=== PATIENT | male | born 1990 | race Caucasian/White ===

== ENCOUNTER 2022-12-13 20:16 | Emergency (ER) | payer OTHER, SELFPAY ==
[2022-12-13 20:18] VITALS: BP 153/112; PULSE 102; RESP 16; TEMP 36.5; O2SAT 99
--- NOTE | 2022-12-13 20:36 | ED.EAR ---
HPI - Ear Problem General Chief complaint: Ear Stated complaint: ear pain Time Seen by Provider: 12/13/22 20:24 History of Present Illness HPI Narrative: This is a 32-year-old male presents the ED with chief complaint of right ear pain x2 days. Patient states the pain got worse today at work so he came to the ER for further evaluation. Patient states he took Tylenol with minimal relief. Reports being sick a couple of weeks ago. Now he feels like the ear is clogged. Denies any left-sided symptoms. Denies sore throat or congestion. Denies fevers, chills Related Data Allergies Allergy/AdvReac Type Severity Reaction Status Date / Time No Known Allergies Allergy Verified 12/13/22 20:20 Review of Systems Review of Systems: CONSTITUTIONAL: Denies fever, chills, or sweats. EYES: Denies visual changes, redness, or discharge. ENT: See CARDIOVASCULAR: Denies chest pain, palpitations, or edema. RESPIRATORY: Denies cough or dyspnea. GASTROINTESTINAL: Denies abdominal pain, nausea, vomiting, or diarrhea. GENITOURINARY: Denies dysuria or hematuria. SKIN: Denies rash or itching. MUSCULOSKELETAL: Denies back pain, joint pain, or myalgia. NEUROLOGIC: Denies headache, numbness, dizziness, or weakness. PSYCHIATRIC: Denies anxiety or depression. Exam Narrative: GENERAL: Well-appearing, well-nourished, and in no acute distress. HEAD: Normocephalic, atraumatic. EYES: PERRLA and EOMI. ENT: Nares clear, no rhinorrhea or epistaxis. Mucous membranes moist. Oropharynx without tonsillar hypertrophy exudate or other lesions. Right ear canal erythematous. Cerumen found on the TM, the difficult to visualize the TM fully but there is erythema there as well. Left ear is benign. NECK: Supple. No adenopathy or masses. CHEST: No respiratory distress. Clear to auscultation. No wheezes rales or rhonchi HEART: Regular rate and rhythm. No murmur heard. Normal peripheral pulses. ABDOMEN: Soft, nontender, nondistended, normal active bowel sounds. EXTREMITIES: Normal range of motion. No edema. SKIN: Warm, dry, no rash. NEURO: Alert and oriented x3. No focal deficits. PSYCH: Normal mood and affect. Course Vital Signs Vital signs: Vital Signs Temperature 97.7 F 12/13/22 20:18 Pulse Rate 102 H 12/13/22 20:18 Respiratory Rate 16 12/13/22 20:18 Blood Pressure 153/112 H 12/13/22 20:18 Pulse Oximetry 99 12/13/22 20:18 Oxygen Delivery Room Air 12/13/22 20:18 Temperature 97.7 F 12/13/22 20:18 Pulse Rate 102 H 12/13/22 20:18 Respiratory Rate 16 12/13/22 20:18 Blood Pressure 153/112 H 12/13/22 20:18 Pulse Oximetry 99 12/13/22 20:18 Oxygen Delivery Room Air 12/13/22 20:18 Medical Decision Making MDM Narrative Medical decision making narrative: This is a 32-year-old male who presents to the ED with chief complaint of right ear pain x2 days. Vitals are stable. Afebrile. Exam reveals otitis externa with possible otitis media. He will be given eardrops here in the ED. Ciprodex prescription given along with Augmentin. Feel this is most likely otitis externa, however he did have a recent viral URI which could be contributing to otitis media. Will be discharged in stable condition. Given PCP for reference for follow-up. Patient is understanding and agreeable to plan for discharge and follow-up. Vital Signs Vital Signs: Vital Signs Temperature 97.7 F 12/13/22 20:18 Pulse Rate 102 H 12/13/22 20:18 Respiratory Rate 16 12/13/22 20:18 Blood Pressure 153/112 H 12/13/22 20:18 Pulse Oximetry 99 12/13/22 20:18 Oxygen Delivery Room Air 12/13/22 20:18 Temperature 97.7 F 12/13/22 20:18 Pulse Rate 102 H 12/13/22 20:18 Respiratory Rate 16 12/13/22 20:18 Blood Pressure 153/112 H 12/13/22 20:18 Pulse Oximetry 99 12/13/22 20:18 Oxygen Delivery Room Air 12/13/22 20:18 Discharge Plan Discharge Clinical Impression: Otitis externa Qualifiers: Otitis externa type: un
[2022-12-13] MEDS: CIPROFLOXACIN HC OTIC 10 ML 3 DROP RIGHT EAR (21:08)
== END 2022-12-13 21:25 | disposition home or self-care (01) ==
LOC: ANHED 20:39
PROVIDERS: Emergency Provider Physician Assistant
DX: H60.501 Unspecified acute noninfective otitis externa, right ear (principal)
CPT/HCPCS: 99283; A9270

== ENCOUNTER 2022-12-20 | Emergency (ER) | payer OTHER, SELFPAY ==
[2022-12-20 00:03] VITALS: BP 156/87; PULSE 99; RESP 18; TEMP 37.1; O2SAT 99
--- NOTE | 2022-12-20 02:33 | ED.EAR ---
HPI - Ear Problem General Chief complaint: Ear Stated complaint: Ear pain ( right) Time Seen by Provider: 12/20/22 01:56 Source: patient Mode of arrival: ambulatory Limitations: no limitations History of Present Illness HPI Narrative: Patient is a 32-year-old male who presents to the ED with report of right ear/jaw pain. Patient reports he was seen in the ED here and diagnosed with right otitis externa on 12/13. There was questionable otitis media, as well. Patient was given Ciprodex eardrops and Augmentin. He states he did not finish either of these. He did not follow-up with primary. He reports having intermittent pain in right ear/jaw/denominational region. He has been taking Tylenol intermittently for this and did take ibuprofen one time. Denies any hearing loss, fever or other upper respiratory symptoms, denies cough, congestion, sore throat, rhinorrhea, pain with chewing. Related Data Allergies Allergy/AdvReac Type Severity Reaction Status Date / Time No Known Allergies Allergy Verified 12/13/22 20:20 Review of Systems Review of Systems: CONSTITUTIONAL: Denies fever, chills, or sweats. ENT: See HPI. CARDIOVASCULAR: Denies chest pain. RESPIRATORY: Denies cough or dyspnea. GASTROINTESTINAL: Denies abdominal pain, nausea, vomiting. All systems reviewed & are unremarkable except as noted in HPI and below PMFSH Past Medical History Medical History (Updated 12/20/22 @ 02:57 by Jeninfer Koch PA-C) No pertinent past medical history Surgical History Surgical History (Updated 12/20/22 @ 02:57 by Jennifer Koch PA-C) No pertinent past surgical history Social History Social History (Updated 12/20/22 @ 02:57 by Jennifer Koch PA-C) Smoking status: Never smoker Exam Narrative: GENERAL: Well appearing, morbidly obese with BMI of 43.3, non-toxic, in no acute distress. HEAD: Normocephalic, atraumatic. ENT: Small amount of white debris present in right ear overlying TM, no erythema or bulging noted of right TM. No obvious TM perforation or rupture. No significant swelling of EAC. No tenderness with palpation of pinna. No drainage. Normal left ear. Mucous membranes moist. No significant tenderness over TMJ or mandible. NECK: Supple. No adenopathy, no masses. Full range of motion. RESPIRATORY: Airway patent, respirations nonlabored. CARDIOVASCULAR: Regular rate and rhythm without murmurs, rubs, or gallops. Radial pulses 2+ and equal bilaterally. MUSCULOSKELETAL: Moves all extremities. Strength/ROM intact without gross deformities. SKIN: Warm, dry, normal color. No rashes. NEURO: A&O X3. Speech clear. Cranial nerves II-XII grossly intact. Steady gait. No ataxic movements. PSYCHIATRIC: Appropriate mood and affect. Normal interaction. Course Vital Signs Vital signs: Vital Signs Temperature 98.8 F 12/20/22 00:03 Pulse Rate 99 12/20/22 00:03 Respiratory Rate 18 12/20/22 00:03 Blood Pressure 156/87 H 12/20/22 00:03 Pulse Oximetry 99 12/20/22 00:03 Temperature 98.8 F 12/20/22 00:03 Pulse Rate 99 12/20/22 00:03 Respiratory Rate 18 12/20/22 00:03 Blood Pressure 156/87 H 12/20/22 00:03 Pulse Oximetry 99 12/20/22 00:03 Medical Decision Making MDM Narrative Medical decision making narrative: Patient presented to ED with persistent right ear/jaw pain, recently diagnosed with AOM/AOE. Noncompliant with antibiotics. Vital stable upon arrival. Afebrile. Patient denying any other upper respiratory symptoms. No significant signs of infection on ear exam, some debris noted in right canal. Discussed possibility of remaining infection, TMJ. Advised patient to continue Tylenol and ibuprofen as needed for pain, finish antibiotics as previously prescribed, and follow with ENT for further evaluation. Will provide Dr. Dominguez's information for follow-up. Given reasons to return. Discharged in stable condition. Medical Records Medical records reviewed: Yes I
[2022-12-20] MEDS: KETOROLAC (*BKC) 60 MG/2 ML VIAL IM (02:47)
[2022-12-20 02:52] VITALS: BP 131/87; O2SAT 100
[2022-12-20 03:01] VITALS: BP 122/76; O2SAT 100
[2022-12-20 03:09] VITALS: BP 122/76; PULSE 67; RESP 16; O2SAT 99
== END 2022-12-20 03:15 | disposition home or self-care (01) ==
PROVIDERS: Emergency Provider Physician Assistant
DX: H92.01 Otalgia, right ear (principal); M26.621 Arthralgia of right temporomandibular joint
CPT/HCPCS: 96372; 99283; J1885

== ENCOUNTER 2022-12-20 10:40 | Emergency (ER) | payer OTHER, SELFPAY ==
--- NOTE | ~2022-12-20 | CT_ITS ---
EXAMINATION: CT brain wo con DATE: 12/20/2022 11:48 INDICATION: Right mastoid tenderness. TECHNIQUE: Computed tomography (CT) of the head was performed without intravenous contrast. The mA wa s adjusted according to patient size. Iterative reconstruction technique was employed. The dose-lengt h product was 605.33 mGy-cm. COMPARISON: None FINDINGS: There is no intracranial hemorrhage, acute infarction, or abnormal intracranial mass lesion . The ventricles are normal in size. The orbits are normal. There is mild mucosal thickening in the e thmoid sinuses. The mastoid air cells are normal. There is cerumen in right external auditory canal. IMPRESSION: 1. Normal brain. 2. Cerumen in right external auditory canal. Reviewed, dictated and finalized at location A.
[2022-12-20 10:42] VITALS: BP 144/94; PULSE 95; RESP 16; TEMP 36.4; O2SAT 100
--- NOTE | 2022-12-20 11:07 | ED.EAR ---
HPI - Ear Problem General Chief complaint: Ear Stated complaint: right ear pain Time Seen by Provider: 12/20/22 10:47 History of Present Illness HPI Narrative: 32-year-old male here for evaluation of right ear pain x5 days. Patient states that he was seen here upon onset and was treated for otitis externa and media with drops and oral antibiotics. Reports initial improvement but his symptoms returned and worsened last evening. He was seen again in the ED, was given Toradol with improvement of his symptoms. Patient states the pain returned this morning, he took an ibuprofen without relief and so he presented back here. At time my evaluation patient believes the ibuprofen has taken its effect and he has currently complaining of 2 out of 10 pain. When the pain is there it is present in his entire ear and middle ear, behind his ear and into his right religious. It is a throbbing pain. He denies any visual changes, nausea or vomiting or fevers or chills. He is not a diabetic. Related Data Allergies Allergy/AdvReac Type Severity Reaction Status Date / Time No Known Allergies Allergy Verified 12/20/22 10:45 Review of Systems Review of Systems: Gen.: Denies fevers or chills Eyes: Denies eye pain or visual change ENT: Reports ear pain Respiratory: Denies shortness of breath or cough CV: Denies chest pain or palpitations GI: Denies abdominal pain nausea, emesis or diarrhea denies burning, urgency, frequency or hematuria Musculoskeletal: Denies back pain or muscle pain Neuro: Denies numbness, tingling, weakness or focal weakness Skin: Denies rash Except as documented, all other systems reviewed and negative PMFSH Past Medical History Medical History No pertinent past medical history Surgical History Surgical History No pertinent past surgical history Social History Social History (Updated 12/20/22 @ 02:57 by Jennifer Koch PA-C) Smoking status: Never smoker Exam Narrative: APPEARANCE: Well appearing, no pain in distress, well-nourished. Head: Normocephalic and atraumatic. EYES: There is a large ball of cerumen in the right ear which obscures complete visualization of the TM. This was irrigated, the TM has a large amount of white material NOSE: No nasal drainage EARS: External ear normal in appearance THROAT: Oropharynx is clear. Mucous membranes are moist. NECK: Supple. No adenopathy, no masses. RESPIRATORY: Airway patent, respirations nonlabored. Clear to auscultation bilaterally, no rales, rhonchi, wheezing. CARDIOVASCULAR: Regular rate and rhythm without murmurs, rubs, or gallops. ABDOMINAL: Normoactive bowel sounds. Soft, nontender, nondistended. No rebound tenderness or guarding. MUSCULOSKELETAL: Extremities are warm and well-perfused. Moves all extremities well. No edema. NEURO: Normal speech. No focal neurologic deficits. SKIN: Skin is warm and dry. No rashes. PSYCHIATRIC: Normal affect/mood. Course Vital Signs Vital signs: Vital Signs Temperature 97.5 F L 12/20/22 10:42 Pulse Rate 95 12/20/22 10:42 Respiratory Rate 16 12/20/22 10:42 Blood Pressure 144/94 H 12/20/22 10:42 Pulse Oximetry 100 12/20/22 10:42 Oxygen Delivery Room Air 12/20/22 10:42 Temperature 97.5 F L 12/20/22 10:42 Pulse Rate 95 12/20/22 10:42 Respiratory Rate 16 12/20/22 10:42 Blood Pressure 144/94 H 12/20/22 10:42 Pulse Oximetry 100 12/20/22 10:42 Oxygen Delivery Room Air 12/20/22 10:42 Medical Decision Making [facility] Narrative Medical decision making narrative: 32-year-old male here for evaluation of right ear pain times several days. Was seen here, was diagnosed with otitis media and externa, was given antibiotic drops and oral antibiotics, reportedly did not finish these. He has lots of debris in the ear canal that was irrigated, the right tympanic
== END 2022-12-20 12:15 | disposition home or self-care (01) ==
PROVIDERS: Emergency Provider Physician Assistant
DX: H92.01 Otalgia, right ear (principal)
CPT/HCPCS: 70450; 96372; 99284; J1885